=== PATIENT | female | born 1980 | race Caucasian/White ===

== ENCOUNTER 2020-01-11 22:32 | Emergency (ER) | payer OTHER ==
[~2020-01-11] VITALS: Ht 175.3 cm; Wt 65.9 kg
[2020-01-11] MEDS ORDERED: MORPHINE SULFATE 4 MG/ML DISP.SYRIN. IV ONE (23:15)
[2020-01-11] MEDS ORDERED: ONDANSETRON PF 4 MG/2 ML VIAL. IVP ONE (23:15)
[2020-01-11 23:28] LABS: BILIRUBIN,URINE NEG (NEG); CLARITY,URINE CLEAR; COLOR,URINE YELLOW; GLUCOSE,URINE NEG (NEG)
[2020-01-11 23:29] LABS: BACTERIA,URINE 0 /HPF (0-FEW); NITRITE,URINE NEG (NEG); RBC,URINE OCC /HPF (0-2); SQUAMOUS EPITHELIAL CELL,UR FEW /LPF; UROBILINOGEN,URINE 0.2 mg/dL (0.2 mg/dL); WBC,URINE OCC /HPF (0-4)
[2020-01-11] MEDS ORDERED: CONTRAST GIVEN. MC PRN (23:30)
[2020-01-11 23:43] LABS: BASO # 0.1 x10^3/uL (0.0-0.2); BASO % 1 % (0-3); EOS % 0 % (0-3); HEMATOCRIT 36.8 % (36.0-47.0); LYMPH # 0.4 x10^3/uL (1.0-4.8); LYMPH % 3 % (24-48); MEAN CORPUSCULAR HEMOGLOBIN 29 pg (25-35); MEAN CORPUSCULAR HGB CONC 33 g/dL (31-37); MEAN CORPUSCULAR VOLUME 88 fL (79-100); MONO # 0.7 x10^3/uL (0.0-1.1); MONO % 5 % (0-9); NEUT # 12.8 x10^3uL (1.8-7.7); NEUT % 91 % (31-73); PLATELET COUNT 170 x10^3/uL (140-400); RED BLOOD COUNT 4.17 x10^6/uL (3.50-5.40); RED CELL DISTRIBUTION WIDTH 15.2 % (11.5-14.5)
[2020-01-11] MEDS ORDERED: IOHEXOL 300 MG/ML 75 ML VIAL. IV ONE (23:45)
[2020-01-11] MEDS ORDERED: IOHEXOL 240 MG/ML 50ML VIAL. PO ONE (23:45)
[2020-01-11 23:50] LABS: CALCIUM 8.9 mg/dL (8.5-10.1); CREATININE 0.9 mg/dL (0.6-1.0); GFR 70.5; POTASSIUM 4.2 mmol/L (3.5-5.1)
[2020-01-11 23:56] LABS: ALBUMIN 3.8 g/dL (3.4-5.0); ALBUMIN/GLOBULIN RATIO 1.4 (1.0-1.7); TOTAL BILIRUBIN 1.2 mg/dL (0.2-1.0); TOTAL PROTEIN 6.6 g/dL (6.4-8.2)
[2020-01-12] MEDS ORDERED: MORPHINE SULFATE 4 MG/ML DISP.SYRIN. IV ONE ×2 (00:30→02:00)
[2020-01-12] MEDS ORDERED: IV NORMAL SALINE 1,000ML 1,000 ML IV ONE (00:30)
--- NOTE | 2020-01-12 01:29 | RAD ---
INDICATION: Reason: post op x1 day endometreosis, severe pelv pain, n/v [id number] 75cc / Spl. Instructions: / History: . COMPARISON: None. TECHNIQUE: Axial CT images obtained through the abdomen and pelvis with contrast. One or more of the following individualized dose reduction techniques were utilized for this examination: 1. Automated exposure control; 2. Adjustment of the mA and/or kV according to patient size; 3. Use of iterative reconstruction technique. FINDINGS: Intraperitoneal free air is identified as well as free fluid with portions of the fluid appearing higher than simple density. There is also some adjacent peritoneal enhancement. Abdominal aorta is not aneurysmal. Air within the subcutaneous soft tissues. There is a couple of subcentimeter low-density hepatic lesions which are too small to characterize. Low-density at the portal triads. Pancreas enhances. Spleen unremarkable. Mild prominence of the bilateral extrarenal pelvis. 2 mm calcification at lower pole the left kidney could be secondary to a nonobstructive stone. Urinary bladder is partially distended. Enhancing structure in the right adnexa measuring up to 17 mm. There is surrounding fluid therefore difficult to tell if this is part of the right ovary. Edema throughout the mesentery. IMPRESSION: * Air is seen within the subcutaneous soft tissues as well as intraperitoneal free air. The patient had abdominal surgery today which can explain the free air however within the pelvis anteriorly there is some contrast seen which is suspected to be extraluminal in nature abutting some of the bowel loops therefore this does raise the concern for perforation. There are several small bowel loops seen adjacent to this location therefore small bowel perforation within the pelvis is the suspected source. * Free fluid is seen within the abdomen and pelvis and is more than typically seen postoperatively. Additionally portions appear high density which can be seen with a hemorrhagic component. There is also some thickening of the peritoneal lining at a portion of the fluid suggestive of peritoneal inflammation. Would correlate with symptoms of peritonitis. * Enhancing structure in the right adnexa which could be related to the right ovary but unclear etiology given that this is within the region of fluid. * Low-density at the portal triads. Nonspecific in nature and could be related to the patient's hydration status but would correlate with symptoms and lab markers to ensure that there is not cholangitis or hepatitis contributing. Report called to the ER at 1:19 AM Electronically signed by: Jose Romo MD (01/12/2020 1:26 AM) [id number]
[2020-01-12] MEDS ORDERED: HYDROmorphone PF 1 MG/ML DISP.SYRIN IVP ONE (01:30)
[2020-01-12] MEDS ORDERED: PIPERACILLIN/TAZOBACTAM 3.375 GM in IV NORMAL SALINE 50ML 50 ML IV ONE (02:00)
[2020-01-12] MEDS ORDERED: PIPERACILLIN/TAZOBACTAM 3.375 GM VIAL IV ONE (02:06)
[2020-01-12] MEDS ORDERED: IV NORMAL SALINE 50ML 50 ML ONE (02:06)
--- NOTE | 2020-01-12 02:14 | PHYS DOC ---
Past History Past Medical History: Endometriosis Past Surgical History: , Other Additional Past Surgical Histo: ankle, sinus, breast augmentation Alcohol Use: Occasionally Adult General Chief Complaint Chief Complaint: ABDOMINAL PAIN HPI HPI Patient is a 39-year-old female presents to the emergency room complaining of severe abdominal and pelvic pain after having surgery today. Patient had a laparoscopic surgery where she had ablation done of endometriosis and a drainage of an ovarian cyst. She states she initially felt okay but around 4:00 she developed sharp shooting pains from her right abdomen into her lower abdomen. She called her surgeon at that time who recommended Gas-X. She has tried that medication and tried walking around without any relief. She took Percocet prior to arrival without any relief. She states the pain is unbearable and she can barely move. She called her surgeon again who recommended going to the emergency room. Review of Systems Review of Systems General: Denies fever, chills, sweats, fatigue Eyes: Denies drainage, blurred vision, eye redness HENT: Denies rhinorrhea, sore throat, earache Respiratory: Denies cough, shortness of breath, wheezing Cardiac: Denies edema, palpitations, chest pain GI: Denies nausea, vomiting. Reports severe abdominal pain, pelvic pain MSK: Denies back pain, neck pain Skin: Denies rash, jaundice Neuro: Denies headache, dizziness Psychiatric: Denies SI/HI All other systems were reviewed and found to be within normal limits, except as documented in this note. Current Medications Current Medications Current Medications Medications (Trade) Dose Ordered Sig/Yoko Start Time Stop Time Status Last Admin Dose Admin Hydromorphone HCl (Dilaudid) 1 mg 1X ONCE 01/12/20 01:30 01/12/20 01:33 DC 01/12/20 01:32 1 MG Info (Do NOT chart on this entry -- for MONITORING) 1 each PRN DAILY PRN 01/11/20 23:30 01/13/20 23:29 Iohexol (Omnipaque 240 Mg/ml) 30 ml 1X ONCE 01/11/20 23:45 01/11/20 23:46 DC 01/12/20 00:31 30 ML Iohexol (Omnipaque 300 Mg/ml) 75 ml 1X ONCE 01/11/20 23:45 01/11/20 23:46 DC 01/12/20 00:32 75 ML Morphine Sulfate (Morphine 4mg Syringe) 4 mg 1X ONCE 01/12/20 02:00 01/12/20 02:01 Ondansetron HCl (Zofran) 4 mg 1X ONCE 01/11/20 23:15 01/11/20 23:28 DC 01/11/20 23:26 4 MG Piperacillin Sod/ Tazobactam Sod 3.375 gm/Sodium Chloride 50 ml @ 100 mls/hr 1X ONCE 01/12/20 02:00 01/12/20 02:29 Sodium Chloride 1,000 ml @ 1,000 mls/hr 1X ONCE 01/12/20 00:30 01/12/20 01:29 DC 01/12/20 00:27 1,000 MLS/HR Allergies Allergies Allergies Coded Allergies Type Severity Reaction Last Updated Verified No Known Drug Allergies 01/11/20 No Physical Exam Physical Exam General: Awake, alert, NAD. Well Nourished, well hydrated. Cooperative HEENT: Atraumatic, EOMI, PERRL, airway patent, moist oral mucosa Neck: Supple, trachea midline Respiratory: CTA bilaterally, normal effort, no wheezing/crackles CV: RRR, no murmur, cap refill <2 GI: Firm, diffuse tenderness worse in the lower abdomen, rebound, guarding, nondistended MSK: No obvious deformities Skin: Warm, dry, intact Neuro: A&O x3, speech NL, sensory and motor grossly intact, no focal deficits Psych: Normal affect, normal mood, not suicidal or homicidal Current Patient Data Vital Signs Vital Signs Date Time Temp Pulse Resp B/P (MAP) Pulse Ox O2 Delivery O2 Flow Rate FiO2 01/12/20 01:43 68 22 129/74 (92) 100 Room Air 01/11/20 22:32 98.0 Lab Results Laboratory Tests Test 01/11/20 22:35 01/11/20 23:09 01/11/20 23:24 Urine Collection Type Unknown Urine Color Yellow Urine Clarity Clear Urine pH 6.0 Urine Specific [place] >=1.030 Urine Protein Neg (NEG-TRACE) Urine Glucose (UA) Neg mg/dL (NEG) Urine Ketones (Stick) >=160 mg/dL (NEG) Urine Blood Mod (NEG) Urine Nitrite Neg (NEG) Urine Bilirubin Neg (NEG) Urine Urobilinogen Dipstick 0.2 mg/dL (0.2 mg/dL) Urine Leukocyte Esterase Neg (NEG) Urine RBC Occ /HPF (0-2) Urine WBC Occ /HPF (0-4) Urine Squamous Epithelial Cells Few /LPF Urine Bacteria 0 /HPF (0-FEW) Urine Mucus Slight /LPF POC Urine HCG, Qualitative hcg negative (Negative) White Blood Count 14.0 x10^3/uL (4.0-11.0) H Red Blood Count 4.17 x10^6/uL (3.50-5.40) Hemoglobin 12.0 g/dL (12.0-15.5) Hematocrit 36.8 % (36.0-47.0) Mean Corpuscular Volume 88 fL (79-100) Mean Corpuscular Hemoglobin 29 pg (25-35) Mean Corpuscular Hemoglobin Concent 33 g/dL (31-37) Red Cell Distribution Width 15.2 % (11.5-14.5) H Platelet Count 170 x10^3/uL (140-400) Neutrophils (%) (Auto) 91 % (31-73) H Lymphocytes (%) (Auto) 3 % (24-48) L Monocytes (%) (Auto) 5 % (0-9) Eosinophils (%) (Auto) 0 % (0-3) Basophils (%) (Auto) 1 % (0-3) Neutrophils # (Auto) 12.8 x10^3uL (1.8-7.7) H Lymphocytes # (Auto) 0.4 x10^3/uL (1.0-4.8) L Monocytes # (Auto) 0.7 x10^3/uL (0.0-1.1) Eosinophils # (Auto) 0.0 x10^3/uL (0.0-0.7) Basophils # (Auto) 0.1 x10^3/uL (0.0-0.2) Sodium Level 135 mmol/L (136-145) L Potassium Level 4.2 mmol/L (3.5-5.1) Chloride Level 100 mmol/L (98-107) Carbon Dioxide Level 23 mmol/L (21-32) Anion Gap 12 (6-14) Blood Urea Nitrogen 9 mg/dL (7-20) Creatinine 0.9 mg/dL (0.6-1.0) Estimated GFR (Cockcroft-Gault) 70.5 BUN/Creatinine Ratio 10 (6-20) Glucose Level 145 mg/dL (70-99) H Calcium Level 8.9 mg/dL (8.5-10.1) Total Bilirubin 1.2 mg/dL (0.2-1.0) H Aspartate Amino Transferase (AST) 19 U/L (15-37) Alanine Aminotransferase (ALT) 25 U/L (14-59) Alkaline Phosphatase 37 U/L (46-116) L Total Protein 6.6 g/dL (6.4-8.2) Albumin 3.8 g/dL (3.4-5.0) Albumin/Globulin Ratio 1.4 (1.0-1.7) EKG EKG [] Radiology/Procedures Radiology/Procedures [] Heart Score Risk Factors: Risk Factors: DM, Current or recent (<one month) smoker, HTN, HLP, family history of CAD, obesity. Risk Scores: Risk Factors: DM, Current or recent (<one month) smoker, HTN, HLP, family history of CAD, obesity. Course & Med Decision Making Course & Med Decision Making Pertinent Labs and Imaging studies reviewed. (See chart for details) Patient is a 39-year-old female who presents the emergency room complaining of severe abdominal pain after surgery earlier today. She did touch her surgeon prior to arrival who recommended she come to the emergency room. She did try Gas-X earlier per the recommendation without any relief. She continues to have severe pain. She states that it starts on the right side and radiates down into her groin like sharp pains. She sometimes feels it in her back. Abdominal work-up was ordered including abdominal labs and a CT abdomen pelvis. CT shows perforated bowel. 0130 Received called from Radiology on results concerning for perforated bowel. I made multiple calls to Dr Iman Villegas cell phone provided by the patient. Did not receive a return call. 0140: Dr Iveth RODRIGUEZ at [facility] called. She states she recommends trying to get a hold of Dr Villegas. If unable to do that she would recommend a general surgeon. 0145 Further attempts at getting in touch with Dr Villegas via cell phone unsuccessful. Attempted the answering service who only had an internalist homemaking rehabilitation consultant [phone]: Dr Capps at [facility] has accepted the patient. He requests NG and antibiotics. Dr Longoria will admit. Nohelia Disclaimer Nohelia Disclaimer This electronic medical record was generated, in whole or in part, using a voice recognition dictation system. Departure Departure: Impression: Primary Impression: Perforated intestine Additional Impressions: Post-op bleeding Post-operative complication Disposition: 02 DC/TRF OTHER SHORT TERM HOS Condition: STABLE Referrals: PCP,UNKNOWN (PCP) Problem Qualifiers BRIAN BACA MD Jan 12, 2020 02:14
[2020-01-12 02:53] VITALS: BP 120/75
--- NOTE | 2020-01-12 03:06 | RAD ---
INDICATION: Reason: NG Tube placement / Spl. Instructions: / History: COMPARISON: CT from previous day FINDINGS: Single view of chest obtained. Enteric tube is seen with tip at left upper quadrant of the abdomen at expected location of the stomach. Intraperitoneal free air is again identified. Cardiac silhouette is unremarkable. No definite focal airspace consolidation. IMPRESSION: * Enteric tube with tip at left upper quadrant of the abdomen at expected location of the stomach. * Intraperitoneal free air is again seen. Electronically signed by: Jose Romo MD (01/12/2020 3:03 AM) [id number]
== END 2020-01-12 03:08 | disposition short-term general hospital (02) ==
LOC: ER 22:32
DX: K63.1 Perforation of intestine (nontraumatic) (principal); N99.820 Postprocedural hemorrhage of a genitourinary system organ or structure following a genitourinary system procedure; Z98.890 Other specified postprocedural states
CPT/HCPCS: 36415; 71045; 74177; 80053; 81001; 81025; 85025; 96361; 96365; 96375; 96376; 99285; J1170; J2270; J2405; J2543; J7030; Q9966; Q9967